=== PATIENT | male | born 1960 | race Two or more races ===

== ENCOUNTER 2022-11-15 08:23 | Day surgery (SDC) | payer MEDICARE, BC ==
[2022-11-09 14:27] LABS: Urine Bacteria NONE SEEN /hpf (None Seen); Urine Blood Negative /uL (Negative); Urine Clarity Clear (Clear); Urine Color Colorless (Yellow); Urine Protein, UAD Negative (Negative); Urine Specific Gravity 1.002 (1.001-1.035); Urine Urobilinogen Normal (Negative); Urine WBC <1 /hpf (0 - 3); Urine pH 6.5 (5.0-8.0)
[2022-11-09 14:28] LABS: Basophils # (auto) 0.1 10 ^3/uL (0-0.2); Lymphocytes # (auto) 1.7 10 ^3/uL (0.4-5.4); Mean Corpuscular Hgb Conc. 31.8 g/dL (32.0-36.0); Monocytes # (auto) 0.7 10 ^3/uL (0-1.3); Neutrophils # (auto) 3.3 10 ^3/uL (1.6-8.6)
[2022-11-09 14:29] LABS: Basophils % (auto) 1.7 % (0.0-2.0); Eosinophils # (auto) 0.2 10 ^3/uL (0-0.8); Eosinophils % (auto) 2.7 % (0.0-7.0); Hematocrit 34.5 % (41.0-53.0); Lymphocytes % (auto) 28.1 % (10.0-50.0); Mean Corpuscular Hemoglobin 25.1 pg (28.0-32.0); Mean Corpuscular Volume 78.9 fL (80.0-100.0); Monocytes % (auto) 11.9 % (0.0-12.0); Neutrophils % (auto) 55.6 % (37.0-80.0); Nucleated Red Blood Cells % 0.1 %; Red Blood Cells 4.37 10^6/uL (4.5-5.90)
[2022-11-09 14:31] LABS: Red Cell Distribution Width 26.7 % (11.8-14.3)
[2022-11-09 14:39] LABS: INR 1.25 (0.9-1.15); Prothrombin Time 12.9 sec (9.3-11.8)
[2022-11-09 14:54] LABS: Anisocytosis Slight; Platelet Estimate Adequate
[2022-11-09 15:32] LABS: Alanine Aminotransferase 17 U/L (7-40); Albumin 4.7 g/dL (3.2-4.8); Alkaline Phosphatase 171 U/L (46-116); Anion Gap 6.8 (5-15); Aspartate Aminotransferase 16 U/L (13-40); BUN/Creatinine Ratio 8.7 (10.0-20.0); Blood Urea Nitrogen 10 mg/dL (9-23); Calcium 9.9 mg/dL (8.5-10.1); Carbon Dioxide 26.2 mmol/L (20-30); Chloride 104 mmol/L (98-107); Glucose 79 mg/dL (74-106); Potassium 4.3 mmol/L (3.5-5.1); Sodium 137 mmol/L (136-145)
[2022-11-09 15:33] LABS: Bilirubin, Total 0.6 mg/dL (0.2-1.0); Total Protein 8.4 g/dL (5.7-8.2)
[~2022-11-15] VITALS: Ht 172.7 cm; Wt 73.5 kg
[~2022-11-15 08:23] MED LIST: ASPI81CH59 PO; FURO20TA3 PO; GABA-1308 PO; HYDR-4902 PO; LOSA25TA15 PO; MAGN400T40 OR; METH-1181 PO; SILD50TA42 PO
[2022-11-15] MEDS ORDERED: LIDOCAINE 2% (LOCAL ANESTH.) PF 5ml SDV ONE (10:34)
[2022-11-15] MEDS ORDERED: PROPOFOL 10 MG/ML 20 ML IV ONE ×2 (10:34→10:44)
[2022-11-15 11:07] VITALS: TEMP 97.1; O2SAT 96
[2022-11-15 11:58] VITALS: BP 119/83; PULSE 73; RESP 14; O2SAT 94
== END 2022-11-15 12:00 | disposition home or self-care (01) ==
LOC: GI 08:23 → EDBD 12:45
PROVIDERS: ATTEND Internal Medicine Gastroenterology
DX: R19.5 Other fecal abnormalities (principal); K57.30 Diverticulosis of large intestine without perforation or abscess without bleeding; K64.8 Other hemorrhoids; K63.5 Polyp of colon
CPT/HCPCS: 36415; 43239; 45380; 80053; 81001; 85025; 85610; 85730; J2001; J2704; J7030